=== PATIENT | male | born 1945 | race Caucasian/White ===

== ENCOUNTER 2016-11-04 20:24 | Observation (INO) | payer MEDICARE, OTHER ==
[~2016-11-04] VITALS: Ht 165.1 cm; Wt 101.6 kg
--- NOTE | ~2016-11-04 | CON ---
PATIENT'S NAME: TORIE MARTINEZ [facility] AGE: 71 Y [address] ROOM: [id number] [place], [place] [address] LOCATION: [facility] [place] ADMIT DATE: 09/06/2016 Consultation DISCHARGE DATE: 09/10/2016 FAMILY PHYSICIAN: Sheba Winter MD ATTENDING PHYSICIAN: Daniel Chowdhury DATE OF CONSULTATION: 11/05/2016 REFERRING PHYSICIAN: NATALYA PIERSON REASON FOR CONSULTATION: End-stage renal disease, management on dialysis. HISTORY OF PRESENT ILLNESS: This is a 71-year-old male, well known to our service. ESRD, on hemodialysis as per Tuesday, Tuesday, and Tuesday schedule; type 2 diabetes, now insulin dependent; hypertension; hyperlipidemia; coronary artery disease; systolic heart failure with biventricular implantable ICD; history of cerebellar CVA with wheelchair dependence, currently group home resident, admitted to [facility] with possible CVA versus TIA. Nephrology Service has been consulted for hemodialysis management. The patient is significantly demented and cannot answer questions in detail. However, from the group home record and from the ER record, it is evident that the patient came with apparently not feeling well, diaphoretic, sweaty, and was leaning towards the right. Notably, the patient was being treated for right arm cellulitis in the ER and the patient had a leukocytosis of 14 and pro[address] of 0[address]43. [address] scan and CTA were done this morning, both are reported to be normal. The patient was supposed to get dialysis today as per his Tuesday, Tuesday, and Tuesday schedule. The patient was seen and examined during dialysis. Tolerating the dialysis well. We had a bed weight and as per which, the patient is below the estimated dry weight in the outpatient facility, however, the patient's blood pressure reported to be normal and we continued to challenge him with at least 3 to 4 L as per the hemodynamic response. At this point, the patient denied any complaints including chest pain, cough, shortness of breath, orthopnea, or palpitation. Denied any weakness on any extremity or any side. No nausea, vomiting, or diarrhea. No other significant symptoms. REVIEW OF SYSTEMS: GENERAL: No fever. No chills or rigor. HEENT: No sore throat. No sinus congestion. CVS: No chest pain. No exertional shortness of breath. No leg swelling. RESPIRATORY: No shortness of breath. No cough. No wheezing. GENITOURINARY: No pain with urination. No increased frequency. No nocturia. GASTROINTESTINAL: No abdominal pain. No abdominal distention. No nausea or vomiting. NEUROLOGIC: No weakness. No seizures. SKIN: No rash. No itching. ALLERGIES: No seasonal allergy. No hayfever. ENDOCRINE: No heat intolerance. No cold intolerance. PSYCHIATRIC: No sadness. No crying spells. No history of panic attack.PATIENT'S NAME: TORIE MARTINEZ [facility] AGE: 71 Y [address] ROOM: [place] [address] LOCATION: [facility] [place] ADMIT DATE: 09/06/2016 Consultation DISCHARGE DATE: 09/10/2016 FAMILY PHYSICIAN: Sheba Winter MD ATTENDING PHYSICIAN: Daniel Chowdhury PAST MEDICAL HISTORY: 1. Hypertension. 2. Insulin-dependent diabetes. 3. Dyslipidemia. 4. End-stage renal disease, currently on hemodialysis (Tuesday, Tuesday, and Tuesday schedule). 5. Coronary artery disease. 6. Systolic heart failure with biventricular implantable ICD. 7. Paroxysmal atrial fibrillation, on Pradaxa. 8. Significant dementia. 9. History of cerebellar CVA with wheelchair dependence. CURRENT MEDICATIONS: As per NOV. PAST SURGICAL HISTORY: 1. ICD implantation. 2. Multiple episodes of fistula placement for hemodialysis access, however, failed. Currently on tunnel dialysis catheter. SOCIAL HISTORY: Could not be obtained due to dementia. FAMILY HISTORY: Could not be obtained due to dementia. PHYSICAL EXAMINATION: VITAL SIGNS: Systolic blood pressure 140s/60s, pulse 73, respiratory rate 18, temperature 96.3, saturation 98% on room air, and afebrile. GENERAL: Not in apparent distress. HEAD: Moist mucous membranes. Bilateral PERRLA, EOMI. NECK: No JVD, thyromegaly or lymphadenopathy. CVS: S1 and S2 normal, regular rate and rhythm. No murmur, rub, gallop. CHEST: Bilateral air entry equal. No wheeze or rales. ABDOMEN: Soft, nontender, nondistended. Bowel sounds present. EXTREMITIES: No cyanosis, clubbing, jaundice. No dependent edema. MUSCULOSKELETAL: No limitation of range of motion. SKIN: No pallor, cyanosis, icterus. STORAGE WORKER: Alert and oriented x3. No gross findings. LABORATORY STUDIES: Lactate 2.3. ProBNP 2875. WBC 14.2, hemoglobin 10.8, hematocrit 34.7, and platelet 293. Chemistry: Sodium 129, potassium 4.8, chloride 93, bicarbonate 23, BUN 55, creatinine 6.8, total protein 8.6, albumin 2.2, alkaline phosphatase 136, total bilirubin 0.4, PT 11.8, INR 1.1, and PTT 41. UA: Specific gravity of 1.020, pH 5, LE plus, nitrite negative, protein trace, glucose negative, ketones trace, urobilinogen and bilirubin negative, blood positive, wbc's 5 to 10 and rbc's 2 to 5. Procalcitonin 0.43. PATIENT'S NAME: TORIE MARTINEZ [facility] AGE: 71 Y [address] ROOM: [place] [address] LOCATION: [facility] [place] ADMIT DATE: 09/06/2016 Consultation DISCHARGE DATE: 09/10/2016 FAMILY PHYSICIAN: Sheba Winter MD ATTENDING PHYSICIAN: Daniel Chowdhury ASSESSMENT AND PLAN: 1. End-stage renal disease, on hemodialysis, as per Tuesday, Tuesday, and Tuesday schedule. Presumable etiology of end-stage renal disease is diabetic nephropathy, plus-minus hypertensive nephrosclerosis, had multiple episodes of failed access before, currently having dialysis fluid tunneled dialysis catheter, which is functioning fine. Although, as per the bed weight, the patient is below the estimated dry weight, but which might be erroneous. We will continue challenging him for 3 to 4 L as per the hemodynamic response, currently hemodynamically stable. 2. Weakness and possible leaning towards the right side. CT scan and CTA did not show any acute changes. Neurology is on board. We will defer management as per the primary team and Neurology. 3. Iron deficiency anemia. The patient is getting Venofer on hemodialysis along with some MRSA. We will continue to monitor hemoglobin while in the inpatient as well as in the outpatient setting. 4. Complication of access. The patient had multiple complication of fistula, currently getting dialysis with a tunneled dialysis catheter. Thank you for allowing me to participate in this patient's care. We will closely monitor the patient's progress along with you. MD JOSE DUEÑAS/deb /[id number] d: 11/05/16 1844 t: 11/18/16 1201, CONSULTATION REPORT
--- NOTE | ~2016-11-04 | HP ---
PATIENT'S NAME: TORIE MARTINEZ [facility] AGE: 71 Y [address] ROOM: [place] [id number] LOCATION: [facility] ADMIT DATE: 11/04/2016 History & Physical DISCHARGE DATE: FAMILY PHYSICIAN: Sheba Winter MD ATTENDING PHYSICIAN: Po Zepeda V DATE OF SERVICE: CHIEF COMPLAINT: Leaning to the right. HISTORY OF PRESENT ILLNESS: The patient is a 71-year-old male, resident of a senior living facility, with multiple medical problems, one of them is dementia and is not able to provide any history. History is obtained from the ER provider and documentation forwarded from the senior living facility. Apparently, he was diaphoretic and sweaty, was "leaning to the right" earlier today. He was sent to the [facility] Emergency Room. Here, the patient had a workup, which was remarkable for a leukocytosis of 14 and a procalcitonin of 0.43. At this point, the patient volunteers no complaints and actually reports that he is feeling quite comfortable. REVIEW OF SYSTEMS: All systems have been reviewed and negative except for pertinent positives mentioned above. PAST MEDICAL HISTORY: Significant for; 1. Insulin-dependent diabetes. 2. End-stage renal disease, on hemodialysis. 3. Paroxysmal atrial fibrillation, on Pradaxa. 4. Biventricular implanted ICD. 5. Coronary artery disease. 6. History of cerebellar CVA with wheelchair dependence. 7. Significant dementia. 8. Failed AV access for his dialysis, requiring placement of a tunneled catheter. CURRENT MEDICATIONS: 1. Levemir. 2. Pradaxa. 3. Carbamazepine. 4. Colace. 5. Dulcolax. PATIENT'S NAME: TORIE MARTINEZ [facility] AGE: 71 Y [address] ROOM: [address] [place], [place] [address] LOCATION: [facility] ADMIT DATE: 11/04/2016 History & Physical DISCHARGE DATE: FAMILY PHYSICIAN: Sheba Winter MD ATTENDING PHYSICIAN: Po Zepeda V 6. Humalog. 7. Aspirin. 8. MiraLax. 9. Protonix. 10. Toujeo insulin. SOCIAL HISTORY: Cannot be obtained due to dementia. FAMILY HISTORY: Cannot be obtained due to dementia. PHYSICAL EXAMINATION: VITAL SIGNS: Blood pressure is 144/66, temperature 96.3, pulse 73, respirations 18, and saturating 97% on room air. GENERAL: Appears morbidly obese, elderly male, in no acute distress. NEUROLOGIC: Grossly nonfocal. EYES: Show pupils are equal and reactive to light. LYMPHATIC: Shows no cervical lymphadenopathy. ENDOCRINE: Shows no thyromegaly. LUNGS: Clear to auscultation. HEART: Heart rate is regular. No appreciable murmurs, gallops, or rubs. ABDOMEN: Soft, nontender, and nondistended. : Shows no costovertebral angle tenderness. VASCULAR: 2+ pedal pulses. MUSCULOSKELETAL: Unremarkable. PSYCHIATRIC: Reveals the patient is alert and oriented x1, but in no disproportionate mood or affect. SKIN: Warm and dry. STUDIES: Studies from the ER significant for EKG, which shows a biventricular paced rhythm at 69 beats per minute. CAT scan shows considerable volume loss consistent with microvascular dementia, though I do appreciate considerable dilatation of his ventricles. LABORATORY DATA: Lab results are significant for an unremarkable UA. White count of 14.2 with no bands and lactate of 2.3. Sodium 129, potassium 4.8, BUN 55, and creatinine 6.8. ASSESSMENT AND PLAN: A 71-year-old male, who will be admitted with transient loss of balance. Differential may be a new cerebrovascular accident, though on Pradaxa that is unlikely. The patient may also have some normal pressure hydrocephalus. We PATIENT'S NAME: TORIE MARTINEZ [facility] AGE: 71 Y [address] ROOM: [place] [address] LOCATION: [facility] ADMIT DATE: 11/04/2016 History & Physical DISCHARGE DATE: FAMILY PHYSICIAN: Sheba Winter MD ATTENDING PHYSICIAN: Po Zepeda V will admit the patient to neuro trauma unit. We will get a CT angiogram of his head and neck arteries to rule out any additional circulatory compromise. We will get a Neurology consultation. 1. Leukocytosis. At this point, I do not appreciate a focus of infection and we will not continue the patient on any antibiotics. 2. End-stage renal disease, on hemodialysis. Request Nephrology consultation for hemodialysis. 3. Insulin-dependent diabetes. We will continue the patient on insulin and put him on diabetic diet. 4. Deep venous thrombosis prophylaxis will not be required as the patient is fully anticoagulated. Additional management depend on clinical course. Time dedicated to this patient's encounter is 35 minutes. MD CYNTHIA LALA/deb /[id number] D: [id number] T: [id number] HISTORY & PHYSICAL
--- NOTE | ~2016-11-04 | ER ---
[facility]GE: 71 Y [address] ROOM: [place] [id number] LOCATION: [facility] ADMIT DATE: 11/04/2016 ER/Outpatient Report DISCHARGE DATE: FAMILY PHYSICIAN: Sheba Winter MD ATTENDING PHYSICIAN: Po Zepeda V TIME OF ARRIVAL: 2027 hours. TIME OF EVALUATION: 2027 hours. CHIEF COMPLAINT: Leaning to the right-side. HISTORY OF PRESENT ILLNESS: The patient is a 71-year-old male who presents to the emergency department today with a chief complaint of leaning to the right-side. [facility] a [facility] and per staff the patient was at supper, he became diaphoretic, flushed, and started leaning to the right. He reported that he was not feeling well. This occurred at 1700 hours. They sent him here for further evaluation, treatment, and management. He denies any fevers or chills. No nausea or vomiting. No diarrhea or constipation. No chest pain. No shortness of breath. No headache. Denies any abdominal pain. PAST MEDICAL HISTORY: End-stage renal disease, on hemodialysis, diabetes mellitus type 2, non- insulin dependent, coronary artery disease, atherosclerosis, chronic combined systolic and diastolic congestive heart failure, major depressive disorder, gastroesophageal reflux disease, hypertension, atrial fibrillation, dermatitis, and depression. PAST SURGICAL HISTORY: Coronary artery bypass grafting, pacemaker. SOCIAL HISTORY: The patient denies any tobacco, alcohol, or illicit drug use. ALLERGIES: PENICILLIN. MEDICATIONS: Please see list. REVIEW OF SYSTEMS: [facility]GE: 71 Y [address] ROOM: [id number] [place] [id number] LOCATION: [facility] ADMIT DATE: 11/04/2016 ER/Outpatient Report DISCHARGE DATE: FAMILY PHYSICIAN: Sheba Winter MD ATTENDING PHYSICIAN: Po Zepeda V All systems are reviewed by myself are negative with the exception of those discussed in HPI and past medical history. PHYSICAL EXAMINATION: VITAL SIGNS: Weight 103.8 kg. Blood pressure 144/66, pulse 73, respiratory rate 18, temperature 96.3, and oxygen saturation 97% on room air. GENERAL: The patient is a 71-year-old male, appears stated age, in no acute distress, well-developed, well-nourished. HEENT: Head: Normocephalic, atraumatic. Pupils are equal, round, and reactive to light and accommodation. Extraocular motions are intact. Nares are patent bilaterally. TMs are clear. Oropharynx is clear. NECK: Supple. There is no nuchal rigidity. CARDIOVASCULAR: Regular rate and rhythm. No murmurs, rubs, or gallops. LUNGS: Clear to auscultation bilaterally. No wheezes, rales, or rhonchi. ABDOMEN: Soft, nontender, nondistended. No rebound, rigidity, or guarding. MUSCULOSKELETAL: The patient moves all 4 extremities. NEUROLOGICAL: GCS 15. Alert, oriented to person, not place, is to time and not situation. No pronator drift. Equal teacher adventure education strength bilaterally. Difficulties with [id number]. No motor deficits. Normal sensation of face. No facial asymmetry. SKIN: Warm and dry. LABS AND X-RAYS: EKG is obtained, it is interpreted by myself shows AV paced with a rate of 69. Sgarbossa criteria is negative. QTc is 464. CBC: White blood cell count 14.2, hemoglobin 10.8, hematocrit 34.7, otherwise normal, ANC is 11.2. Lactate is 2.3. Coags are normal. TSH and free T4 is normal. BNP is 2875. CMP: Sodium 129, chloride 93, BUN 55, creatinine 6.8, and glucose 209. LFTs normal. CK is normal. CK-MB is normal. Troponin is less than 0.04. CT scan of the brain shows no acute process with small areas of old infarct involving the bilateral cerebellar hemispheres and old CT in left frontal lobe. Urinalysis shows 500 leukocyte esterase, negative nitrites, 30 protein, 5 ketones, 250 blood, 5-10 wbcs, 2-5 rbcs, and 2-5 epithelials. Procalcitonin 0.43. IMPRESSION: 1. Altered mental status. 2. Leukocytosis. 3. History of cerebellar infarct. 4. Initial visit. EMERGENCY DEPARTMENT COURSE: The patient brought back to the examination room. Seen and evaluated by myself. IV is established. Laboratory analysis and imaging are obtained as described above. The patient's acute onset of the symptoms are concerning for PATIENT'S NAME: TORIE MARTINEZ [facility] AGE: 71 Y [address] ROOM: [place] [address] LOCATION: [facility] ADMIT DATE: 11/04/2016 ER/Outpatient Report DISCHARGE DATE: FAMILY PHYSICIAN: Sheba Winter MD ATTENDING PHYSICIAN: Po Zepeda V possible cerebellar infarct. The patient is on Pradaxa, his symptoms appeared minimal at this time, the patient does not qualify for Tpa due to the contraindications. I have discussed results with the patient. With his symptoms, I have recommended admission to the hospital for further evaluation, treatment, and management. I have contacted Dr. Zepeda with the Hospitalist Service at 2207 hours and he has seen and evaluated the patient down here in the emergency department. Please see his dictation. DISPOSITION: The patient is admitted under the care of Hospitalist Service in stable condition. DO KEVIN SCHULZ/orianal /[id number] d: 11/05/16209 t: 11/08/16605, OUTPATIENT REPORT
--- NOTE | ~2016-11-04 | DS ---
PATIENT'S NAME: LINO MARTINEZ [facility] AGE: 71 Y [address] ROOM: [place] [address] LOCATION: [facility] ADMIT DATE: 11/04/2016 Discharge Summary DISCHARGE DATE: 11/07/2016 FAMILY PHYSICIAN: Hermila Hess MD ATTENDING PHYSICIAN: Po Zepeda V DATE OF DISCHARGE: 11/07/2016. DISCHARGE DIAGNOSES: 1. Imbalance due to weakness and hypoglycemia 2. Leukocytosis. 3. Chronic systolic heart failure. 4. End-stage renal disease, on hemodialysis. 5. Physical deconditioning. 6. Resolving right-arm cellulitis. 7. IDDM complicated with hypoglycemia DISCHARGE MEDICATIONS: 1. Aspirin 81 mg daily. 2. Lipitor 80 mg daily. 3. Bacitracin ointment 1 application twice daily over right arm scab. 4. Bisacodyl suppositories as needed. 5. Dulcolax 5 mg p.o. daily. 6. Calcium acetate 667 mg 3 times daily. 7. Carbamazepine Extended Release 12 hourly 100 mg p.o. twice daily. 8. Citalopram hydrobromide tablet 20 mg every night at bedtime. 9. Pradaxa 75 mg twice daily. 10. Docusate 100 mg twice daily. 11. Toujeo 35 units subcu everyday. 12. Lispro per moderate sliding scale pre-meal. 13. Midodrine 10 mg p.o. 3 days per week. 14. Pantoprazole 40 mg every night at bedtime. 15. MiraLAX 1 packet daily as needed for constipation. 16. P.r.n. medications include acetaminophen, sodium chloride nasal spray, dextrose tabs and glucagon emergency kit for hypoglycemia, magnesium hydroxide, and multivitamin. DISCHARGE INSTRUCTIONS: 1. Low-salt diet. 2. Ensure fluid restriction of 1800 mL. 3. Activity as tolerated. 4. Followup with Dr. Hess in a week. 5. Follow up with Dr. Marcus in 1 week. HOSPITALIZATION COURSE: Overall, Mr. Lino Martinez was transferred from the PATIENT'S NAME: LINO MARTINEZ [facility] AGE: 71 Y [address] ROOM: [place] [address] LOCATION: [facility] ADMIT DATE: 11/04/2016 Discharge Summary DISCHARGE DATE: 11/07/2016 FAMILY PHYSICIAN: Hermila Hess MD ATTENDING PHYSICIAN: Po Zepeda V alf to the emergency room after he was noted to be leaning to the right-side. There was a concern that he may have had a stroke and was sent to the ER. Initially, CAT scan did not show any acute stroke. Neurology was consulted and a CT of brain did not show any significant stenosis in the intracranial arteries. An echocardiogram which was a limited study showed ejection fraction of 40% with significantly reduced right ventricular function, concentric LVH, grade 1 diastolic dysfunction, with no evidence of PFO or ASD on bubble study. He will maintain his blood pressure and oxygenation were during the hospitalization. During his hospitalization, he was noted to have low blood sugar and his insulin regimen was altered. He was placed on 35 units of Levemir and is previously insulin was discontinued. He was moderateslidingscale. He was noted to have leukocytosis with elevated procalcitonin, but no other source of infection besides the resolving right arm cellulitis. The patient completed his course of doxycycline. He remained afebrile and leukocytosis slowly improved. He will continue with his bacitracin ointment on his right arm scab. He underwent his hemodialysis on Tuesday. He also had physical therapy while inpatient. He will need physical therapy upon discharge. WEIGHTBEARING STATUS: He has physical deconditioning, he is mostly on a wheelchair. He will need physical therapy and occupation therapy upon discharge. REHAB POTENTIAL: Poor. DISCHARGE POTENTIAL: Fair. CONDITION ON DISCHARGE: FAIR. Hospitalization course and discharge planning was discussed with patient's , Darlene Martinez. HERMILA HESS MD BA/deb /[id number] d: 11/07/16 0159 t: 11/08/16 1016, DISCHARGE SUMMARY
--- NOTE | ~2016-11-04 | ECHO ---
Transthoracic Echocardiography Report (TTE) Demographics Patient Name TORIE MARTINEZ Date of Study 11/05/2016 Patient Number [id number] Visit Number [id number] Date of 1945 Room Number G6227 Gender Male Number Age 71 year(s) Referring Duane Fontenot V History Instructor Kathleen Dominguez RVT, Physician MD STEFANO Scruggs MD Physician Interpreting Katie Hinson Administration Specialist Physician A Supervising Ordering Koffi Bone MD, MD/MLP Physician Nurse Stress Property Staff Accountant Conclusions Contractility Score Summary At rest the following contractility abnormalities were noted: Hypokinesis of the Mid nimco-lateral, the Mid nimco-septal, the Mid infero-septal, the Mid infero-lateral, the Apical inferior, the Apical septal, the Apical lateral and the Apical cap segments; Akinesis of the Mid inferior, the Basal nimco-septal, the Basal infero-septal, the Apical anterior and the Basal inferior segments. Contractility of all other segments appeared normal. Summary Technically difficult exam. Definity used to better delineate endocardial borders. The estimated left ventricular ejection fraction is 40%. Mild concentric left ventricular hypertrophy. Diastolic assessment reveals Grade I diastolic dysfunction. Severely reduced right ventricular function. Device lead noted in the right ventricle and right atrium. The left atrium is mildly dilated. Bubble study was done, there is no evidence for a PFO or ASD. Mild mitral regurgitation by color Doppler. Mild mitral annular calcification. Procedure Type of Study TTE procedure:2D Echocardiogram, Echo with Contrast. Procedure Date Date: 11/05/2016 Start: 02:17 PM Study Location: Inpatient Portable Technical Quality: Poor visualization due to poor acoustical window. Indications:CVA. Patient Status: Routine Contrast Medium: Definity. Amount - 3 ml Rhythm: Paced HR: 70 bpm BP: 93/50 mmHg Allergies - Penicillin. M-Mode/2D Measurements LV Diastolic Dimension: 5.31 cm LV Systolic Dimension: 4.71 cm LV Septum Diastolic: 1.25 cm LV PW Diastolic: 1.27 cm AO Root Dimension: 3.2 cm Cardiac Output: 3.26 l/min AV Cusp Separation: 2 cm RV Diastolic Dimension: 2.72 cm LA volume: 63 ml LVOT: 2.3 cm RV Base: 3.92 cm LVOT VTI: 11.2 cm RV Mid: 2.81 cm LV Stroke volume: 46.51 ml TAPSE: 0.81 cm TDI-S': 8.77 cm/s Doppler Measurements AV Peak Velocity: 1.08 m/s MV Peak E-Wave: 0.49 m/s AV Peak Gradient: 4.67 mmHg MV Peak A-Wave: 0.7 m/s AV Mean Gradient: 3 mmHg MV E/A Ratio: 0.7 LVOT Peak Velocity: 0.62 m/s MV P1/2t: 81 msec TR Gradient:16.48 mmHg PV Peak Velocity: 0.7 m/s Estimated RAP:5 mmHg PV Peak Gradient: 1.98 mmHg Estimated RVSP: 21 mmHg Estimated PASP: 21.48 mmHg E' Septal Velocity: 0.06 m/s A' Septal Velocity: 0.09 m/s E' Lateral Velocity: 0.08 m/s A' Lateral Velocity: 0.11 m/s Findings Left Ventricle Mild concentric left ventricular hypertrophy. Diastolic assessment reveals Grade I diastolic dysfunction. The left ventricle is mildly dilated . Right Ventricle Severely reduced right ventricular function. Device lead noted in the right ventricle. Left Atrium The left atrium is mildly dilated. Bubble study was done, there is no evidence for a PFO or ASD. Right Atrium The right atrium is mildly dilated. IVC measures 1.92 cm with inspiratory collapse. Device lead seen in the right atrium. Mitral Valve Mild mitral regurgitation by color Doppler. Mild mitral annular calcification. Aortic Valve Normal aortic valve structure and function. Tricuspid Valve Normal tricuspid valve structure and function. Pulmonic Valve Normal pulmonic valve structure and function. Trivial pulmonic valve regurgitation by color Doppler. Pericardial Effusion No evidence of pericardial effusion. Miscellaneous Visualized portions of the aortic root and ascending aorta appear normal in size. Pleural Effusion No evidence of pleural effusion. Contractility Score LV regional wall motion:(0-Non visualized 1-Normal 2-Hypokinesis 3-Akinesis 4-Dyskinesis 5-Aneurysm) Signature dtt: Baldev Wilson dtd: 11/05/16 1417 Physician Self Edit
--- NOTE | ~2016-11-04 | CON ---
PATIENT'S NAME: TORIE MARTINEZ [facility] AGE: 71 Y [address] ROOM: [address] [address] LOCATION: [facility] ADMIT DATE: 11/04/2016 Consultation DISCHARGE DATE: 11/07/2016 FAMILY PHYSICIAN: Sheba Winter MD ATTENDING PHYSICIAN: Po Zepeda V REFERRING PHYSICIAN: Michael De León MD This is a neurological consultation for the hospitalist. DATE AND TIME: 11/05/2016 at 03:44 p.m. CHIEF COMPLAINT: Leaning to the right. HISTORY OF PRESENT ILLNESS: This is a 71-year-old male, who [facility]. He has multiple health issues including dementia, so he is not able to provide any history. History is obtained from old charts and current documentation. The shelter facility also sent some information. Apparently, at the shelter facility, he was diaphoretic and sweaty and leaning to the right. He is wheelchair-bound. He was sent to the emergency room at [facility] where he was worked up, and he did have a leukocytosis of 14 and a procalcitonin of 0.43, thus he was admitted. A stroke workup was started on this patient. At this point, the patient offers no complaints, no pain, no focal weakness, no vision disturbances, and it is difficult to tell if he is leaning to the right because the patient is usually wheelchair bound and got up with the lift. REVIEW OF SYSTEMS: All systems have been reviewed and are negative except for those in the pertinent positives mentioned in the HPI. PAST MEDICAL HISTORY: Insulin-dependent diabetes; end-stage renal disease, on hemodialysis; paroxysmal atrial fibrillation, on Pradaxa; biventricular implanted ICD; coronary artery disease; history of cerebellar CVA with wheelchair dependence; significant dementia; failed AV access for his dialysis, requiring placement of a tunneled catheter. CURRENT MEDICATIONS: On the chart and reviewed by me. Of note, he is on Pradaxa 75 mg b.i.d. SOCIAL HISTORY: Cannot be obtained due to dementia. It is known he lives in a shelter facility. PATIENT'S NAME: TORIE MARTINEZ [facility] AGE: 71 Y [address] [address] LOCATION: [facility] ADMIT DATE: 11/04/2016 Consultation DISCHARGE DATE: 11/07/2016 FAMILY PHYSICIAN: Sheba Winter MD ATTENDING PHYSICIAN: Po Zepeda V FAMILY HISTORY: Cannot be obtained due to dementia. PHYSICAL EXAMINATION: VITAL SIGNS: Temperature is 98.1, pulse is 70, respirations 12, blood pressure 132/91, and SpO2 is 94% on room air. GENERAL: This patient appears comfortable in the bed. Will arouse. He appears in no acute distress. NEUROLOGIC: Nonfocal exam. NIH stroke scale is 0. Of note, he is confused as to where he is, but does know his name. His pupils are equal, round, and reactive to light and accommodation. EOMI. LYMPHATIC: Shows no cervical lymphadenopathy. LUNGS: Clear to auscultation. HEART: Regular rate and rhythm. No appreciable murmurs, gallops, or rubs. His rhythm is a paced rhythm on the monitor. ABDOMEN: Soft, nontender, and nondistended. VASCULAR: 2+ pedal pulses. Of note, he has significant venous staining to bilateral lower extremities. MUSCULOSKELETAL: Noted bilateral foot drop. No clonus, but definitely tight Achilles when examined. IMAGING: CT scan of his brain done in the emergency room shows a stable aging brain with volume loss and multiple small chronic infarcts. No evidence of anything acute. The patient did also have a CTA of the head and neck. There are some mild atherosclerotic changes, but no stenosis or other arterial lesions. Posterior circulation is patent. To look further complete his stroke workup, a lipid panel was done, it shows his LDL is at 29 mg/dL. An echo with bubble study is pending on this patient. SUMMARY: This is a 71-year-old, on full anticoagulation, who was admitted to the hospital. Neurology was consulted due to concern for a posterior stroke because the patient was leaning to the right. The patient is on full anticoagulation with Pradaxa. His CT and CTA are unremarkable for anything acute. 1. Prior stroke. Continue aspirin and Lipitor therapy. Also of note, the patient is on Pradaxa for his atrial fibrillation. 2. Atrial fibrillation. The patient is already on Pradaxa for this. Likelihood of him missing the medication is low since he is in a shelter facility. 3. Right-sided deviance. This is not noted on today's exam. Of note, the patient is difficult to assess due to his wheelchair-bound nature. PATIENT'S NAME: TORIE MARTINEZ [facility] AGE: 71 Y [address] ROOM: [id number] [place], [place] [address] LOCATION: [facility] ADMIT DATE: 11/04/2016 Consultation DISCHARGE DATE: 11/07/2016 FAMILY PHYSICIAN: Sheba Winter MD ATTENDING PHYSICIAN: Po Zepeda V The patient was seen and examined with Dr. Michael De León and the plan of care was developed with him. Thank you for the opportunity to participate in this patient's plan of care. If you have any questions, please do not hesitate to notify us. ISMAEL SINGLETON APRN FOR MICHAEL DE LEÓN MD PP/modl /[id number] d: 11/05/162050 t: 11/09/16 1613, CONSULTATION REPORT
[~2016-11-04 20:24] MED LIST: ALLEGRA180 MG PO; ASPIRIN LO-DOSE81 MG PO; ASPIRIN325 MG PO; BACTROBAN N1 GM/TUBE NOSE; CARAFATE1 GM PO; CARBAMAZEPINE100 M2 PO; CELEXA20 MG PO; CENTRUM SILVER1 EAC2 PO; CENTRUM SILVER1 TAB; CENTRUM SILVER1 TAB PO; CO Q-1010 MG PO; COLACE100 MG PO; COUMADIN **IA10 MG PO; DOXYCYCLINE100 MG PO; DULCOLAX10 MG R; DULCOLAX5 MG; DULCOLAX5 MG PO; ELIQUIS5 MG PO; FLAGYL500 MG PO; GLUCAGON EMERGEN1 MG SUB-Q; GLUCOSE4 GM PO; HUMALOG100 UNIT/1; HUMALOG100 UNIT/1 SUB-Q; HUMALOG100 UNIT/3 SUB-Q; LANTUS100 UNIT/1; LEVEMIR100 UNIT/1 SUB-Q; LIPITOR80 MG PO; LOTRIMIN30 GM TOP; MAGNESIUM OXID250 MG; MIDODRINE HCL10 MG PO; MILK OF MA400 MG/5 M PO; MIRALAX17 GM PO; MUCINEX DM ER1 EAC1 PO; NORCO 5-325 MG1 TAB PO; NORVASC5 MG PO; NOVOLOG100 UNIT/M SUB-Q; NYSTATIN1 EAC1 TOP; OMEGA-3 ACID ETH1 GM PO; PHOSLO667 MG PO; PLAVIX75 MG PO; PRADAXA75 MG PO; PRINIVIL (ZESTRI5 MG PO; PROTONIX40 MG PO; ROBITUSSIN DM120 ML PO; SALINE NASAL SP88 ML NOSE; SILTUSSIN DM C473 ML PO; TESSALON PERLE100 MG PO; TOPROL XL25 MG PO; TOUJEO SOL300 UNIT/1 SUB-Q; TYLENOL ARTHRI650 MG PO; TYLENOL650 MG R; WARFARIN SODIUM5 MG PO; [UNRECOGNIZED DRUG - OTHER] PO
[2016-11-04 21:09] LABS: BASOPHIL # 0.1 K/uL (0.0-0.2); BASOPHIL % 0.4 %; EOSINOPHIL # 0.1 K/uL (0.0-0.5); EOSINOPHIL % 0.4 %; HEMATOCRIT 34.7 % (37.0-53.0); HEMOGLOBIN 10.8 g/dL (11.0-16.0); IMMATURE GRANULOCYTE # 0.3 K/uL (0.0-0.3); LYMPHOCYTE # 1.4 K/uL (0.8-4.0); LYMPHOCYTE % 9.8 %; MCH 30.3 pg (27.0-34.0); MCHC 31.1 gm/dL (32.0-36.5); MCV 97.5 fl (83.0-98.0); MONOCYTE # 1.2 K/uL (0.0-1.0); MONOCYTE % 8.6 %; MPV 10.2 fl (9.4-12.4); NEUTROPHIL # (ANC) 11.2 K/uL (1.4-9.0); NEUTROPHIL % 78.8 %; NRBC % 0 /100WBC (0-0.00); PLATELET COUNT 293 K/uL (150-450); RBC 3.56 M/uL (3.50-5.50); RDW-CV 15.4 % (11.9-14.6); WBC 14.2 K/uL (4.0-11.0)
[2016-11-04 21:21] LABS: INR - (THERAPEUTIC) 1.1 (0.9-1.1); PROTIME 11.8 SECONDS (9.6-11.1); PTT 41 SECONDS (25-32)
[2016-11-04 21:30] LABS: ALBUMIN 3.2 gm/dL (3.5-5.0); ALK PHOS 136 IU/L (33-138); ALT 17 IU/L (12-78); ANION GAP 17.8 (10.0-19.0); AST 17 IU/L (10-40); CALCIUM 8.7 mg/dL (8.5-10.5); CHLORIDE 93 mMol/L (96-110); CO2 23 mMol/L (22-32); CPK 119 IU/L (35-332); POTASSIUM 4.8 mMol/L (3.7-5.1); SODIUM 129 mMol/L (135-145); TOTAL BILIRUBIN 0.4 mg/dL (0.0-1.5); TOTAL PROTEIN 8.6 g/dL (6.0-8.4)
[2016-11-04 21:32] LABS: BLOOD UREA NITROGEN 55 mg/dL (6-24); CREATININE 6.8 mg/dL (0.6-1.3); ESTIMATED GFR (MDRD EQUATION) 8
[2016-11-04 21:48] LABS: BLOOD URINE 25 /UL (NEGATIVE); GLUCOSE URINE NEGATIVE (NEGATIVE); KETONE URINE 5 mg/dL (NEGATIVE); LEUKOCYTES URINE 500 /UL (NEGATIVE); NITRITE URINE NEGATIVE (NEGATIVE); PROTEIN URINE 30 mg/dL (NEGATIVE); UROBILINOGEN URINE 1 mg/dL (NORMAL)
[2016-11-04 21:49] LABS: COLOR URINE ORANGE (YELLOW); TURBIDITY URINE 1+ (CLEAR)
[2016-11-04 21:54] LABS: AMORPHOUS URINE 1+ (NEGATIVE); BACTERIA URINE FEW (NEGATIVE); MUCUS URINE 1+ (NEGATIVE); WBC CLUMPS URINE RARE (NEGATIVE)
[2016-11-05] MEDS ORDERED: BACITRACIN1 PKT TOP (08:09)
[2016-11-06 14:53] LABS: BASOPHIL # 0.1 K/uL (0.0-0.2); BASOPHIL % 0.5 %; EOSINOPHIL # 0.2 K/uL (0.0-0.5); EOSINOPHIL % 1.5 %; HEMOGLOBIN 10.9 g/dL (11.0-16.0); IMMATURE GRANULOCYTE # 0.2 K/uL (0.0-0.3); IMMATURE GRANULOCYTE % 1.6 %; LYMPHOCYTE # 2.3 K/uL (0.8-4.0); LYMPHOCYTE % 19.4 %; MCHC 32.1 gm/dL (32.0-36.5); MCV 96.6 fl (83.0-98.0); MONOCYTE # 1.1 K/uL (0.0-1.0); MONOCYTE % 8.9 %; MPV 10.1 fl (9.4-12.4); NEUTROPHIL # (ANC) 8.2 K/uL (1.4-9.0); NEUTROPHIL % 68.1 %; NRBC % 0 /100WBC (0-0.00); PLATELET COUNT 271 K/uL (150-450); RBC 3.52 M/uL (3.50-5.50); RDW-CV 15.4 % (11.9-14.6); WBC 12.1 K/uL (4.0-11.0)
[2017-01-27] MEDS ORDERED: CENTRUM SILVER1 EAC2 (16:02)
[2017-01-27] MEDS ORDERED: ARTIFICIAL TEAR15 ML (16:12)
[2017-01-27] MEDS ORDERED: PRADAXA75 MG (16:14)
[2017-01-27] MEDS ORDERED: LIPITOR10 MG (16:15)
[2017-02-10] MEDS ORDERED: BACITRACIN1 PKT (10:03)
[2017-02-10] MEDS ORDERED: ASPIRIN (CHILDR81 MG (10:03)
== END 2016-11-07 13:00 ==
LOC: GMED 20:24 → GNTU 22:26
PROVIDERS: Emergency Medicine; Student in an Organized Health Care Education/Training Program; ADMIT Internal Medicine
DX: I13.2 Hypertensive heart and chronic kidney disease with heart failure and with stage 5 chronic kidney disease, or end stage renal disease (principal); N18.6 End stage renal disease; I50.22 Chronic systolic (congestive) heart failure; I48.0 Paroxysmal atrial fibrillation; I25.10 Atherosclerotic heart disease of native coronary artery without angina pectoris; D72.829 Elevated white blood cell count, unspecified; E10.649 Type 1 diabetes mellitus with hypoglycemia without coma; K21.9 Gastro-esophageal reflux disease without esophagitis; F03.90 Unspecified dementia, unspecified severity, without behavioral disturbance, psychotic disturbance, mood disturbance, and anxiety; Z99.2 Dependence on renal dialysis; Z95.810 Presence of automatic (implantable) cardiac defibrillator; Z95.0 Presence of cardiac pacemaker; Z95.1 Presence of aortocoronary bypass graft; Z79.899 Other long term (current) drug therapy; Z79.82 Long term (current) use of aspirin; Z79.4 Long term (current) use of insulin; Z88.0 Allergy status to penicillin
CPT/HCPCS: C8929; G0378; J1644; J1956; Q9957; Q9967

== ENCOUNTER → 2016-11-11 | Day surgery (SDC) | payer MEDICARE, OTHER ==
[~2016-11-11] MED LIST changes: +ARTIFICIAL TEAR15 ML; +ASPIRIN (CHILDR81 MG; +BACITRACIN1 PKT; +BACITRACIN1 PKT TOP; +CENTRUM SILVER1 EAC2; +LIPITOR10 MG; +PRADAXA75 MG
--- NOTE | ~2016-11-11 | OR ---
PATIENT'S NAME: TORIE MARTINEZ [facility] AGE: 71 Y [address] ROOM: [place] [address] [place] [facility] [place] DATE: 11/11/2016 OR/Procedure Report DISCHARGE DATE: FAMILY PHYSICIAN: Sheba Winter MD ATTENDING PHYSICIAN: Casper Farley SURGEON: Casper Farley MD TRUCK GREASER: DATE OF PROCEDURE: 11/11/2016 PREOPERATIVE DIAGNOSIS: Poorly functioning left arm arteriovenous fistula. POSTOPERATIVE DIAGNOSIS: Poorly functioning left arm arteriovenous fistula. PROCEDURES PERFORMED: 1. Ligation of previous arteriovenous fistula. 2. Brachioaxillary arteriovenous graft in the same arm. QUALITY COMPLIANCE COORDINATOR: OR staff. ANESTHESIA: General. ESTIMATED BLOOD LOSS: 20 mL. OPERATIVE FINDINGS: Good thrill and bruit in the graft at the end of the case. No bruit in previously placed fistula. DESCRIPTION OF PROCEDURE: The patient was brought to the operating room, placed supine on the operating table, and prepped and draped in a sterile manner. Preoperative time-out was performed. The patient received preoperative antibiotics. We used ultrasound guidance to locate the brachial artery in the antecubital space. We then also used it to identify the location of the axillary vein. We made a transverse incision 2 cm proximal to the antecubital fossa, dissected down to the fascia, incised the fascia in a longitudinal manner, and dissected out the brachial artery in a 360-degree fashion. We then did the same thing with the axillary vein. We then made a counterincision more proximally in the arm, dissected down, and identified the location of the previously placed basilic fistula and ligated with a single silk tie. We then tunneled a 4.7 graft from the axillary incision to the antecubital incision. We gave 5000 units of heparin. We clamped proximally and distally on the artery and made an arteriotomy to 4 mm. We then did a standard running 6-0 Prolene anastomosis. We then did the same thing in the axilla, making a 7 mm venotomy and also repairing that with a 6-0 running Prolene anastomosis from the graft to the vein. We removed the clamps. There was excellent flow. There was a loud bruit auscultated with Doppler in the axillary vein. Heparin was reversed. We used protamine locally. In the PATIENT'S NAME: TORIE MARTINEZ [facility] AGE: 71 Y [address] ROOM: [place] [address] [place] [facility] [place]: 11/11/2016 OR/Procedure Report DISCHARGE DATE: FAMILY PHYSICIAN: Sheba Winter MD ATTENDING PHYSICIAN: Casper Farley wounds, we used thrombin. Deep layers were closed with 2-0 and 3-0 Vicryl. Skin was closed with interrupted 4-0 nylon. The patient tolerated the procedure well and was transferred to the recovery room and then back home later that day. MD JUNIOR VERMA/deb /[id number] d: 11/11/16 1804 t: 11/12/16 1011, OPERATIVE SUMMARY
[2016-11-11 07:32] LABS: BASOPHIL # 0.1 K/uL (0.0-0.2); BASOPHIL % 0.5 %; EOSINOPHIL # 0.1 K/uL (0.0-0.5); HEMATOCRIT 33.5 % (37.0-53.0); HEMOGLOBIN 10.9 g/dL (11.0-16.0); IMMATURE GRANULOCYTE # 0.2 K/uL (0.0-0.3); IMMATURE GRANULOCYTE % 1.7 %; LYMPHOCYTE # 1.9 K/uL (0.8-4.0); LYMPHOCYTE % 16.7 %; MCH 30.9 pg (27.0-34.0); MCHC 32.5 gm/dL (32.0-36.5); MCV 94.9 fl (83.0-98.0); MONOCYTE % 8.5 %; MPV 10.3 fl (9.4-12.4); NEUTROPHIL # (ANC) 8.1 K/uL (1.4-9.0); NEUTROPHIL % 71.6 %; NRBC % 0 /100WBC (0-0.00); PLATELET COUNT 263 K/uL (150-450); RBC 3.53 M/uL (3.50-5.50); RDW-CV 15.3 % (11.9-14.6); WBC 11.2 K/uL (4.0-11.0)
[2016-11-11 07:37] LABS: INR - (THERAPEUTIC) 1.1 (0.9-1.1); PROTIME 11.6 SECONDS (9.6-11.1)
[2016-11-11 07:47] LABS: ALBUMIN 3.1 gm/dL (3.5-5.0); ANION GAP 16.3 (10.0-19.0); CALCIUM 8.6 mg/dL (8.5-10.5); POTASSIUM 4.3 mMol/L (3.7-5.1); TOTAL PROTEIN 8.3 g/dL (6.0-8.4)
[2016-11-11 07:51] LABS: CREATININE 4.9 mg/dL (0.6-1.3); TOTAL BILIRUBIN 0.3 mg/dL (0.0-1.5)
== END | disposition disaster alternative care site (69) ==
LOC: GPOC 11-04 14:00 → GSDC 06:30
PROVIDERS: Surgery Vascular Surgery
PROC: 03WY07Z Revision of Autologous Tissue Substitute in Upper Artery, Open Approach (ICD-10-PCS; principal; 2016-11-11)
PROC: 03L80ZZ Occlusion of Left Brachial Artery, Open Approach (ICD-10-PCS; 2016-11-11)
DX: T82.598A Other mechanical complication of other cardiac and vascular devices and implants, initial encounter (principal); I13.2 Hypertensive heart and chronic kidney disease with heart failure and with stage 5 chronic kidney disease, or end stage renal disease; N18.6 End stage renal disease; I50.9 Heart failure, unspecified; I51.89 Other ill-defined heart diseases; Z88.0 Allergy status to penicillin; Z99.2 Dependence on renal dialysis; Z79.899 Other long term (current) drug therapy
CPT/HCPCS: J0690; J1644; J2001; J2405; J2720; J7030; L8670

== ENCOUNTER → 2017-02-07 | Outpatient (CLI) | payer MEDICARE, OTHER | END | disposition disaster alternative care site (69) | LOC: GRAD 14:22 | PROC: 06PY33Z Removal of Infusion Device from Lower Vein, Percutaneous Approach (ICD-10-PCS; principal; 2017-02-07) | DX: Z45.2 Encounter for adjustment and management of vascular access device (principal) ==

== ENCOUNTER 2017-03-07 12:11 | Emergency (ER) | payer MEDICARE, OTHER ==
--- NOTE | ~2017-03-07 | ER ---
PATIENT'S NAME: TORIE MARTINEZ [facility] AGE: 72 Y [address] ROOM: [place] [address] LOCATION: [facility] ADMIT DATE: 03/07/2017 ER/Outpatient Report DISCHARGE DATE: 03/07/2017 FAMILY PHYSICIAN: Sheba Winter MD ATTENDING PHYSICIAN: Saul Rosen TIME SEEN: 1225 hours. HISTORY OF PRESENT ILLNESS: The patient is a 72-year-old male who was brought in from [facility] with a history of 2 recent falls. The [facility] personnel report that he actually just slid to the floor, but he did hit the back of his head. The fall was reported to his family doctor who suggested that he come in for a CT scan of the head. The patient denied any neck pain. He has had no loss of consciousness. ALLERGIES: SEE HIS COPIED LIST. CURRENT MEDICATIONS: See his copied list, which was reviewed. The patient is on a blood thinner. MEDICAL HISTORY: Atrial fib; insulin-dependent diabetes; hypertension; depression; GERD; hyperlipidemia; and end-stage renal disease, requiring dialysis. SOCIAL HISTORY: No current use of alcohol or tobacco. The patient lives in a [facility]. REVIEW OF SYSTEMS: HEAD AND EENT: The patient is a somewhat poor historian, but he denied any head or neck pain. RESPIRATORY: No report of any cough or shortness of breath. CARDIOVASCULAR: Denied any chest pain. GASTROINTESTINAL: He has had no nausea or vomiting. MUSCULOSKELETAL: Denied any pain in his extremities. SKIN: He evidently did sustain a couple of skin tears to his forearm. PHYSICAL EXAMINATION: VITAL SIGNS: Blood pressure was 131/61, temperature 97.3, respiratory rate 20, pulse 71, and O2 saturations 95%. GENERAL APPEARANCE: He is alert, but oriented to place. HEAD: There is no swelling or palpable tenderness. NECK: Also, no tenderness to palpation. PATIENT'S NAME: TORIE MARTINEZ [facility] AGE: 72 Y [address] ROOM: [place] [address] LOCATION: [facility] ADMIT DATE: 03/07/2017 ER/Outpatient Report DISCHARGE DATE: 03/07/2017 FAMILY PHYSICIAN: Sheba Winter MD ATTENDING PHYSICIAN: Saul Rosen LUNGS: Sounded clear. HEART: Tones distant and regular. EXTREMITIES: Both ankles were edematous. There was a presence of some ecchymosis on both hands. IMAGING DONE: CT head showed no acute bleeds or injuries. CBC: White count was 15.6, hemoglobin 8.7, his ANC was 12.3. CMS: Sodium is low 127, potassium 5.8, chloride 92, glucose 140, BUN elevated at 79 as well as his creatinine at 8.3. ASSESSMENT: 1. Ground level fall. 2. Chronic anticoagulation therapy. 3. End-stage renal disease, requiring dialysis. 4. Depression. 5. Hypertension. 6. History of atrial fibrillation. 7. Insulin-dependent diabetes mellitus. 8. Hyponatremia. PLAN: I did talk to Dr. Winter, his family doctor. His recommendations since his CT was normal that he would be able to go back to the senior care. Recommended close followup by [place] Call if any concerns. JEREMY TEMPLE FOR DO LATANYA SCHULZ/deb /[id number] d: 03/07/172110 t: 03/13/17 1009, OUTPATIENT REPORT
[2017-03-07 13:14] LABS: BASOPHIL % 0.2 %; EOSINOPHIL # 0.1 K/uL (0.0-0.5); EOSINOPHIL % 0.7 %; HEMATOCRIT 27.4 % (37.0-53.0); HEMOGLOBIN 8.7 g/dL (11.0-16.0); IMMATURE GRANULOCYTE # 0.5 K/uL (0.0-0.3); IMMATURE GRANULOCYTE % 2.9 %; LYMPHOCYTE # 1.7 K/uL (0.8-4.0); LYMPHOCYTE % 10.8 %; MCH 31.1 pg (27.0-34.0); MCHC 31.8 gm/dL (32.0-36.5); MCV 97.9 fl (83.0-98.0); MONOCYTE % 6.5 %; MPV 9.9 fl (9.4-12.4); NEUTROPHIL # (ANC) 12.3 K/uL (1.4-9.0); NEUTROPHIL % 78.9 %; NRBC % 0 /100WBC (0-0.00); PLATELET COUNT 231 K/uL (150-450); RDW-CV 17.2 % (11.9-14.6); WBC 15.6 K/uL (4.0-11.0)
[2017-03-07 13:27] LABS: CALCIUM 9.1 mg/dL (8.5-10.5); TOTAL BILIRUBIN 0.3 mg/dL (0.0-1.5); TOTAL PROTEIN 7.4 g/dL (6.0-8.4)
[2017-03-07 13:30] LABS: ANION GAP 14.8 (10.0-19.0); CREATININE 8.3 mg/dL (0.6-1.3); POTASSIUM 5.8 mMol/L (3.7-5.1)
== END 2017-03-07 14:22 | disposition disaster alternative care site (69) ==
LOC: GACC 12:11
PROVIDERS: Physician Assistant Medical
DX: S60.222A Contusion of left hand, initial encounter (principal); S60.221A Contusion of right hand, initial encounter; I12.0 Hypertensive chronic kidney disease with stage 5 chronic kidney disease or end stage renal disease; N18.6 End stage renal disease; F32.9 Major depressive disorder, single episode, unspecified; I48.91 Unspecified atrial fibrillation; E11.22 Type 2 diabetes mellitus with diabetic chronic kidney disease; E87.1 Hypo-osmolality and hyponatremia; K21.9 Gastro-esophageal reflux disease without esophagitis; Z99.2 Dependence on renal dialysis; Z79.01 Long term (current) use of anticoagulants; Z88.0 Allergy status to penicillin; Z79.82 Long term (current) use of aspirin; Z79.899 Other long term (current) drug therapy; W18.30XA Fall on same level, unspecified, initial encounter

== ENCOUNTER 2017-05-09 21:56 | Emergency (ER) | payer MEDICARE, OTHER ==
--- NOTE | ~2017-05-09 | ER ---
PATIENT'S NAME: TORIE MARTINEZ [facility] AGE: 72 Y [address] ROOM: [place] [address] LOCATION: [facility] ADMIT DATE: 05/09/2017 ER/Outpatient Report DISCHARGE DATE: 05/09/2017 FAMILY PHYSICIAN: Physician, Unknown ATTENDING PHYSICIAN: Carlos Mendoza Time of Arrival: 2153 hours. Time of Evaluation: 2153 hours. CHIEF COMPLAINT: Seizure-like activity. HISTORY OF PRESENT ILLNESS: skilled nursing reports the patient went to dialysis today as scheduled, returned back to [facility] at 6 o'clock this evening. During dialysis, he had an episode where he raised his arms up and then had a period of staring off and not responding real well to the staff. Upon arrival back to the retirement, the patient was back to his normal self and did not have any other episodes as described by the dialysis nurse. CURRENT ALLERGIES: On his chart and reviewed by me. CURRENT MEDICATIONS: On his chart and reviewed by me. PAST MEDICAL HISTORY: End-stage renal disease with hemodialysis, congestive heart failure, insulin- dependent diabetes, coronary artery disease, hypertension, dementia, atrial fibrillation. SOCIAL HISTORY: He is a resident at [facility]. Denies use of tobacco, drugs, or alcohol. REVIEW OF SYSTEMS: Negative other than those mentioned in the HPI. PHYSICAL EXAMINATION: VITAL SIGNS: He weighs 100.8 kg, blood pressure is 127/58, pulse of 82, respirations 16, temperature of 98.3 tympanic, O2 saturation is 96% on room air. GENERAL: He is awake, alert, aware of his surroundings. Answers questions appropriately. He is oriented to person, place, and time. LUNGS: His lungs sounds are clear throughout. HEART: Regular rate and rhythm. PATIENT'S NAME: TORIE MARTINEZ [facility] AGE: 72 Y [address] ROOM: [place] [address] LOCATION: [facility] ADMIT DATE: 05/09/2017 ER/Outpatient Report DISCHARGE DATE: 05/09/2017 FAMILY PHYSICIAN: Physician, Unknown ATTENDING PHYSICIAN: Carlos Mendoza ABDOMEN: Soft and nondistended. Bowel sounds are present. He does have a hemodialysis fistula in the left arm. He has multiple skin tears and bruising of the right arm. LABORATORY DATA AND X-RAYS: EKG was completed. It shows a paced rhythm. CBC: White count is 13.7, hemoglobin is 11 with hematocrit of 33.9. INR is 1.33. Sodium is 131, potassium is 4.5, and chloride of 95, BUN is 27 with creatinine of 4.6, which is an improvement from the last levels we have available here. CPK was 38, CK- MB was 1 and troponin was negative. Did do CT of the head. Radiology reports no acute intracranial process. EMERGENCY DEPARTMENT COURSE: The patient rested comfortably on the cart. Vital signs remained stable. IMPRESSION: Seizure-like activity. PLAN: The patient will be discharged back to [facility] to be monitored. Follow up with his primary provider in the next 2 to 3 days. The patient's was contacted. She is aware of plan of care. RAJAN GUPTA APRN FOR MD MARITO AUGUSTIN/deb /[id number] d: 05/10/17 0109 t: 05/11/17 1609, OUTPATIENT REPORT
[2017-05-09 22:27] LABS: BASOPHIL % 0.3 %; EOSINOPHIL # 0.1 K/uL (0.0-0.5); EOSINOPHIL % 0.9 %; IMMATURE GRANULOCYTE # 0.2 K/uL (0.0-0.3); IMMATURE GRANULOCYTE % 1.2 %; LYMPHOCYTE # 1.3 K/uL (0.8-4.0); LYMPHOCYTE % 9.5 %; MCH 32.3 pg (27.0-34.0); MCHC 32.4 gm/dL (32.0-36.5); MCV 99.4 fl (83.0-98.0); MONOCYTE % 7.1 %; MPV 10.3 fl (9.4-12.4); NEUTROPHIL # (ANC) 11.1 K/uL (1.4-9.0); NRBC % 0 /100WBC (0-0.00); PLATELET COUNT 232 K/uL (150-450); RBC 3.41 M/uL (3.50-5.50); RDW-CV 16.2 % (11.9-14.6); WBC 13.7 K/uL (4.0-11.0)
[2017-05-09 22:28] LABS: HEMATOCRIT 33.9 % (37.0-53.0)
[2017-05-09 22:38] LABS: INR - (THERAPEUTIC) 1.33 (0.92-1.07); PTT 56 SECONDS (25-32)
[2017-05-09 22:45] LABS: ALK PHOS 73 IU/L (33-138); ALT 18 IU/L (12-78); ANION GAP 11.5 (10.0-19.0); AST 18 IU/L (10-40); BLOOD UREA NITROGEN 27 mg/dL (6-24); CALCIUM 8.3 mg/dL (8.5-10.5); CHLORIDE 95 mMol/L (96-110); CO2 29 mMol/L (22-32); CPK 38 IU/L (35-332); CREATININE 4.6 mg/dL (0.6-1.3); POTASSIUM 4.5 mMol/L (3.7-5.1); SODIUM 131 mMol/L (135-145); TOTAL BILIRUBIN 0.2 mg/dL (0.0-1.5); TOTAL PROTEIN 7.8 g/dL (6.0-8.4)
== END 2017-05-09 23:47 | disposition disaster alternative care site (69) ==
LOC: GMED 21:56
PROVIDERS: Emergency Medicine
DX: R56.9 Unspecified convulsions (principal); E11.22 Type 2 diabetes mellitus with diabetic chronic kidney disease; I13.2 Hypertensive heart and chronic kidney disease with heart failure and with stage 5 chronic kidney disease, or end stage renal disease; I50.9 Heart failure, unspecified; N18.6 End stage renal disease; F03.90 Unspecified dementia, unspecified severity, without behavioral disturbance, psychotic disturbance, mood disturbance, and anxiety; Z88.0 Allergy status to penicillin; Z79.82 Long term (current) use of aspirin; Z79.899 Other long term (current) drug therapy

== ENCOUNTER → 2017-05-09 | Outpatient (CLI) | payer MEDICARE, OTHER | END | disposition disaster alternative care site (69) | LOC: GAMB 21:38 | DX: R53.1 Weakness (principal); R56.9 Unspecified convulsions; Z99.2 Dependence on renal dialysis | CPT/HCPCS: A0425; A0429 ==

== ENCOUNTER → 2017-05-18 | Outpatient (CLI) | payer MEDICARE, OTHER | END | disposition disaster alternative care site (69) | LOC: GKIC 05-13 13:30 → GRAD 05-17 11:30 | DX: S91.101D Unspecified open wound of right great toe without damage to nail, subsequent encounter (principal) ==